=== PATIENT | male | born 1960 ===

== ENCOUNTER 2018-11-06 10:56 | Emergency (ER) | payer MEDICAID ==
[2018-11-06 10:57] VITALS: BMI 25.6
[2018-11-06 11:20] VITALS: RESP 18; O2SAT 100
[2018-11-06] MEDS ORDERED: Sodium Chloride 0.9% 1,000 ML IV ONE (11:56)
--- NOTE | 2018-11-06 12:07 | C.PDOC ---
History Of Present Illness 58 year old male presents to the emergency department with reports of intermittent, mild hematuria for the last 1.5 months. Patient states that he noticed it again yesterday and this morning. He denies flank pain, abdominal pain, dysuria, fever, and testicular pain. Patient states that he does not have a urologist. Time Seen by Provider: 11/06/18 11:43 Chief Complaint (Nursing): Male Genitourinary History Per: Patient History/Exam Limitations: no limitations Onset/Duration Of Symptoms: Intermittent Episodes, Other (1.5 months) Current Symptoms Are (Timing): Still Present Quality Of Discomfort: denies: "Pain" Associated Symptoms: denies: Fever, Back Pain (flank), Other (abdominal pain, testicular pain, dysuria) Past Medical History Reviewed: Historical Data, Nursing Documentation, Vital Signs Vital Signs: Last Vital Signs Temp 97.9 F 11/06/18 11:16 Pulse 72 11/06/18 11:16 Resp 18 11/06/18 11:16 BP 121/77 11/06/18 11:16 Pulse Ox 100 11/06/18 11:16 - Medical History PMH: No Chronic Diseases Surgical History: No Surg Hx - [facility] Procedures INSERT INDWELLING CATH (04/19/13) OTH TRANSURETHRAL PROSTATECTOMY (05/01/13) Family History: States: No Known Family Hx - Social History Hx Tobacco Use: No Hx Alcohol Use: No Hx Substance Use: Yes - Immunization History Hx Tetanus Toxoid Vaccination: No Hx Influenza Vaccination: No Hx Pneumococcal Vaccination: No Review Of Systems Constitutional: Negative for: Fever Genitourinary: Positive for: Hematuria. Negative for: Dysuria, Other (testicular pain) Musculoskeletal: Negative for: Back Pain (flank pain) Physical Exam - Physical Exam Appears: Non-toxic, No Acute Distress Skin: Normal Color, Warm, Dry Head: Atraumatic, Normacephalic Eye(s): bilateral: Normal Inspection, PERRL, EOMI Oral Mucosa: Moist Neck: Normal, Supple Chest: Symmetrical, No Tenderness Cardiovascular: Rhythm Regular, No Murmur Respiratory: Normal Breath Sounds, No Rales, No Rhonchi, No Wheezing Gastrointestinal/Abdominal: Soft, No Tenderness, No Guarding, No Rebound Extremity: Normal ROM Neurological/Psych: Oriented x3, Normal Speech, Normal Cognition ED Course And Treatment - Laboratory Results Result Diagrams: 11/06/18 12:20 11/06/18 12:20 O2 Sat by Pulse Oximetry: 100 Progress Note: Plan: CMP. CBC. NaCl IV Fluids. Urine Culture. Urinalysis Disposition Counseled Patient/Family Regarding: Studies Performed, Diagnosis, Need For Followup, Rx Given - Disposition Referrals: Suzanna Castillo MD [Staff Provider] - Disposition: HOME/ ROUTINE Disposition Time: 02:00 Condition: STABLE Additional Instructions: FOLLOW UP WITH UROLOGIST WITHIN 1 WEEK DRINK PLENTY OF WATER RETURN TO EMERGENCY ROOM IF YOUR SYMPTOMS BECOME WORSE SEGUIMIENTO CON EL UROLOGISTA EN KARINE SEMANA BEBER ABUNDANTE AGUA VUELVA A LA BRAIN DE EMERGENCIA SI PABLO SNTOMAS SE HACEN PEOR Instructions: Blood in the Urine (Hematuria), Adult (DC) Forms: MD Lingo (Irish) Print Language: RUSSIAN - Clinical Impression Clinical Impression: Hematuria - Scribe Statement The provider has reviewed the documentation as recorded by the Scribe (Alvaro Baca) Provider Attestation: All medical record entries made by the Scribe were at my direction and personally dictated by me. I have reviewed the chart and agree that the record accurately reflects my personal performance of the history, physical exam, medical decision making, and the department course for this patient. I have also personally directed, reviewed, and agree with the discharge instructions and disposition.
[2018-11-06 12:24] LABS: BASO % 0.5 % (0.0-2.0); EOS % 0.3 % (0.0-4.0); HEMOGLOBIN 16.3 g/dL (12.0-18.0); LYMPH # 1.2 K/uL (1.0-4.3); MEAN CELL VOLUME 87.4 fL (80.0-94.0); MEAN CORPUSCULAR HEMOGLOBIN 29.9 pg (27.0-31.0); MEAN CORPUSCULAR HGB CONC 34.2 g/dL (33.0-37.0); MEAN PLATELET VOLUME 9.5 fL (7.2-11.7); MONO # 0.3 K/uL (0.0-0.8); MONO % 5.9 % (0.0-10.0); NEUT # 3.2 K/uL (1.8-7.0); NEUT % 68.3 % (50.0-75.0); RBC 5.45 Mil/uL (4.40-5.90); RED CELL DISTRIBUTION WIDTH 12.5 % (11.5-14.5); WHITE BLOOD COUNT 4.7 K/uL (4.8-10.8)
[2018-11-06 12:26] LABS: URINE BACTERIA RARE (<OCC); URINE BILIRUBIN NEGATIVE (NEGATIVE); URINE BLOOD 3+ (NEGATIVE); URINE CLARITY Clear (Clear); URINE COLOR Straw (YELLOW); URINE GLUCOSE (UA) NORMAL (Normal); URINE LEUKOCYTE ESTERASE NEG Leu/uL (Negative); URINE PROTEIN NEGATIVE (NEGATIVE); URINE UROBILINOGEN NORMAL mg/dL (0.2-1.0)
[2018-11-06 12:35] LABS: ALB/GLOB RATIO 1.6 (1.0-2.1); ALBUMIN 4.7 g/dL (3.5-5.0); ALT/SGPT 35 U/L (21-72); AST/SGOT 32 U/L (17-59); BLOOD UREA NITROGEN 25 mg/dL (9-20); CALCIUM 9.5 mg/dl (8.6-10.4); GFR NON-AFRICAN AMERICAN > 60
[2018-11-06 14:47] VITALS: BP 103/66; PULSE 64; TEMP 98.8
== END 2018-11-06 14:41 | disposition home or self-care (01) ==
LOC: C.ER 10:56
DX: R31.9 Hematuria, unspecified (principal)

== ENCOUNTER 2018-11-07 11:35 | Emergency (ER) | payer MEDICAID ==
[2018-11-07 11:49] VITALS: TEMP 97.8; O2SAT 98; BMI 21.4
--- NOTE | 2018-11-07 12:16 | C.PDOC ---
History Of Present Illness 58 y/o male comes in complaining of a worsening dysuria for the past several days. Patient was seen here on 11/06/18 for similar complaint. Patient also complains of intermittent hematuria for the past 1.5 months but now has more frequency and increased clots. Patient states he is able to void fully. Denies nausea, vomiting, or fever. Patient also complains of intermittent suprapubic pain with no associations with urination. HO TURP 2012 DR DING WORSENING DYSURIA X SEV DAYS. SEEN 11/06 FOR SAME. INTERMIT HEMATURIA X 1.5 MO BUT NOW MORE FREQ, INCR CLOTS. PS ABLE TO VOID FULLY. NO NV, FEVER. INTERMIT SUPRAPUB PAIN NO ASSOC W URINATION. EXAM MILD DIST NOTNOXIC ABD +SUPRAPUB TEND NONTENDIST REMAINDER NEG Time Seen by Provider: 11/07/18 12:05 Chief Complaint (Nursing): Male Genitourinary History Per: Patient History/Exam Limitations: no limitations Onset/Duration Of Symptoms: Days Current Symptoms Are (Timing): Still Present Past Medical History Reviewed: Historical Data, Nursing Documentation, Vital Signs Vital Signs: Last Vital Signs Temp 97.8 F 11/07/18 11:43 Pulse 70 11/07/18 11:43 Resp 18 11/07/18 11:43 BP 145/81 11/07/18 11:43 Pulse Ox 98 11/07/18 11:43 - Medical History PMH: Benign Prostatic Hyperplasia - [facility] Procedures INSERT INDWELLING CATH (04/19/13) OTH TRANSURETHRAL PROSTATECTOMY (05/01/13) Family History: States: No Known Family Hx - Social History Hx Tobacco Use: No Hx Alcohol Use: No Hx Substance Use: Yes (weed) - Immunization History Hx Tetanus Toxoid Vaccination: No Hx Influenza Vaccination: No Hx Pneumococcal Vaccination: No Review Of Systems Except As Marked, All Systems Reviewed And Found Negative. Constitutional: Negative for: Fever Gastrointestinal: Positive for: Abdominal Pain (suprapubic pain). Negative for: Nausea, Vomiting Genitourinary: Positive for: Dysuria, Frequency (increased), Hematuria Physical Exam - Physical Exam Appears: Non-toxic, In Acute Distress (mild distress) Skin: Warm, Dry Head: Atraumatic, Normacephalic Eye(s): bilateral: Normal Inspection Oral Mucosa: Moist Neck: Supple Chest: Symmetrical Cardiovascular: Rhythm Regular, No Murmur Respiratory: Normal Breath Sounds, No Rales, No Rhonchi, No Wheezing Gastrointestinal/Abdominal: Tenderness (to suprapubic region), No Distention Extremity: Bilateral: Atraumatic, Normal Color And Temperature, Normal ROM Neurological/Psych: Oriented x3, Normal Speech ED Course And Treatment O2 Sat by Pulse Oximetry: 98 (RA) Pulse Ox Interpretation: Normal - CT Scan/US Abd/Pel CT Other Rad Studies (CT/US): Read By Radiologist, Radiology Report Reviewed CT/US Interpretation: FINDINGS: LOWER THORAX: No visible consolidation, pleural effusion, or pneumothorax. LIVER: Unremarkable. GALLBLADDER AND BILE DUCTS: Unremarkable. PANCREAS: Unremarkable. SPLEEN: 10 mm probable splenule. Otherwise unremarkable. ADRENALS: Unremarkable. KIDNEYS AND URETERS: The kidneys enhance symmetrically. No hydronephrosis or obstructing calculus identified. Too small to characterize 5 mm hypodensity; statistically likely cyst. VASCULATURE: No aortic aneurysm. Mild atherosclerotic calcification of the aorta. BOWEL: Stomach is nondistended. Lack of oral contrast limits evaluation for bowel pathology. Bowel loops appear within normal limits of caliber without evidence of obstruction. APPENDIX: No secondary signs of acute appendicitis. PERITONEUM: No significant free fluid. No definite free air. LYMPH NODES: No bulky adenopathy identified. BLADDER: Unremarkable. REPRODUCTIVE: Enlarged heterogeneous prostate gland measures approximately 5.2 x 5.6 x 8.6 cm (AP by transverse by cc). BONES: No acute osseous abnormality is detected. OTHER FINDINGS: None. IMPRESSION: Heterogeneous markedly enlarged prostate gland as above. Recommend correlation with PSA. Progress Note: Abd/Pel CT and UA ordered. Patient was given pyridium PO and toradol IV. Progress - Re-Evaluation Re-evaluation Note: 11/07/18 14:[address] REPORT REVIEWED. ADVISED FU - Data Reviewed Data Reviewed: Diagnostic imaging, Old records Disposition Counseled Patient/Family Regarding: Studies Performed, Diagnosis, Need For Followup - Disposition Referrals: Suzanna Castillo MD [Staff Provider] - Disposition: HOME/ ROUTINE Disposition Time: 14:48 Condition: IMPROVED Prescriptions: Ibuprofen [Motrin] 600 mg PO Q6 #30 tab Phenazopyridine HCl [Pyridium] 200 mg PO BID #6 tablet Instructions: Blood in the Urine (Hematuria), Adult (DC) Forms: [facility] (Swazi), Work Excuse - Clinical Impression Clinical Impression: Hematuria, Enlarged prostate - Scribe Statement The provider has reviewed the documentation as recorded by the Wilyibe Bridgett Gupta Provider Attestation: All medical record entries made by the Scribe were at my direction and personally dictated by me. I have reviewed the chart and agree that the record accurately reflects my personal performance of the history, physical exam, medical decision making, and the department course for this patient. I have also personally directed, reviewed, and agree with the discharge instructions and disposition.
[2018-11-07 13:15] LABS: URINE BACTERIA FEW (<OCC); URINE BILIRUBIN NEGATIVE (NEGATIVE); URINE BLOOD 3+ (NEGATIVE); URINE CLARITY Clear (Clear); URINE COLOR Red (YELLOW); URINE GLUCOSE (UA) NORMAL (Normal); URINE LEUKOCYTE ESTERASE NEG Leu/uL (Negative); URINE PROTEIN 2+ mg/dL (NEGATIVE); URINE UROBILINOGEN NORMAL mg/dL (0.2-1.0)
[2018-11-07] MEDS ORDERED: Iodixanol 320 MG/ML 100 ML BOTTLE IV ONE (13:17)
--- NOTE | 2018-11-07 14:35 | CT ---
Date of service: 11/07/2018 PROCEDURE: CT Abdomen and Pelvis with contrast HISTORY: PELVIC PAIN, HEMATURIA COMPARISON: CT abdomen and pelvis without contrast performed 07/26/13 TECHNIQUE: Contrast dose: 100 mL Visipaque IV Radiation dose: Total exam DLP = 264.88 mGy-cm. This CT exam was performed using one or more of the following dose reduction techniques: Automated exposure control, adjustment of the mA and/or kV according to patient size, and/or use of iterative reconstruction technique. FINDINGS: LOWER THORAX: No visible consolidation, pleural effusion, or pneumothorax. LIVER: Unremarkable. GALLBLADDER AND BILE DUCTS: Unremarkable. PANCREAS: Unremarkable. SPLEEN: 10 mm probable splenule. Otherwise unremarkable. ADRENALS: Unremarkable. KIDNEYS AND URETERS: The kidneys enhance symmetrically. No hydronephrosis or obstructing calculus identified. Too small to characterize 5 mm hypodensity; statistically likely cyst. VASCULATURE: No aortic aneurysm. Mild atherosclerotic calcification of the aorta. BOWEL: Stomach is nondistended. Lack of oral contrast limits evaluation for bowel pathology. Bowel loops appear within normal limits of caliber without evidence of obstruction. APPENDIX: No secondary signs of acute appendicitis. PERITONEUM: No significant free fluid. No definite free air. LYMPH NODES: No bulky adenopathy identified. BLADDER: Unremarkable. REPRODUCTIVE: Enlarged heterogeneous prostate gland measures approximately 5.2 x 5.6 x 8.6 cm (AP by transverse by cc). BONES: No acute osseous abnormality is detected. OTHER FINDINGS: None. IMPRESSION: Heterogeneous markedly enlarged prostate gland as above. Recommend correlation with PSA.
[2018-11-07 15:10] VITALS: BP 132/81; PULSE 79; RESP 16
== END 2018-11-07 15:09 | disposition home or self-care (01) ==
LOC: C.ER 11:35
DX: R31.9 Hematuria, unspecified (principal); N40.0 Benign prostatic hyperplasia without lower urinary tract symptoms
CPT/HCPCS: 74177; 81001; 87086; 96374; 99284; J1885; Q9967

== ENCOUNTER 2018-11-08 12:56 | Inpatient (IN) | payer MEDICAID ==
[2018-11-08 12:56] VITALS: BMI 25.6
[2018-11-08] MEDS ORDERED: Sodium Chloride 0.9% 1,000 ML IV ONE ×4 (14:32→20:30)
[2018-11-08 15:07] LABS: BASO % 0.4 % (0.0-2.0); EOS % 0.2 % (0.0-4.0); HEMOGLOBIN 16.1 g/dL (12.0-18.0); LYMPH # 1.5 K/uL (1.0-4.3); LYMPH % 25.6 % (20.0-40.0); MEAN CELL VOLUME 87.5 fL (80.0-94.0); MEAN CORPUSCULAR HEMOGLOBIN 29.6 pg (27.0-31.0); MEAN CORPUSCULAR HGB CONC 33.8 g/dL (33.0-37.0); MEAN PLATELET VOLUME 9.2 fL (7.2-11.7); MONO # 0.3 K/uL (0.0-0.8); MONO % 5.5 % (0.0-10.0); NEUT # 3.9 K/uL (1.8-7.0); NEUT % 68.3 % (50.0-75.0); RBC 5.46 Mil/uL (4.40-5.90); RED CELL DISTRIBUTION WIDTH 12.6 % (11.5-14.5); WHITE BLOOD COUNT 5.7 K/uL (4.8-10.8)
[2018-11-08] MEDS ORDERED: Sodium Chloride 0.9% 1,000 ML ONE (15:08)
[2018-11-08 15:12] LABS: URINE BACTERIA RARE (<OCC); URINE BILIRUBIN NEGATIVE (NEGATIVE); URINE BLOOD 1+ (NEGATIVE); URINE CLARITY Clear (Clear); URINE COLOR Amber (YELLOW); URINE GLUCOSE (UA) NORMAL (Normal); URINE LEUKOCYTE ESTERASE NEG Leu/uL (Negative); URINE PROTEIN 1+ mg/dL (NEGATIVE)
[2018-11-08 15:16] LABS: INR 1.1; PROTHROMBIN TIME 11.8 SECONDS (9.7-12.2)
[2018-11-08 15:28] LABS: ALB/GLOB RATIO 1.5 (1.0-2.1); ALBUMIN 4.6 g/dL (3.5-5.0); ALT/SGPT 35 U/L (21-72); AST/SGOT 35 U/L (17-59); BLOOD UREA NITROGEN 22 mg/dL (9-20); CALCIUM 9.6 mg/dl (8.6-10.4); GFR NON-AFRICAN AMERICAN > 60
--- NOTE | 2018-11-08 15:43 | C.PDOC ---
History Of Present Illness 58 y/o male,w/PMhx of BPH, presents to the ER upon referral of urologist, Dr. Kenton Castillo for emergent cystoscopy. Patient states that he has worsening hematuria which has been present for the past 1 month. Patient denies having fever,chills, abdominal pain, pelvic pain, dysuria, and urinary retention. Time Seen by Provider: 11/08/18 14:10 Chief Complaint (Nursing): Male Genitourinary History Per: Patient History/Exam Limitations: no limitations Onset/Duration Of Symptoms: Days, Waxing/Waning Severity: Moderate Past Medical History Reviewed: Historical Data, Nursing Documentation, Vital Signs Vital Signs: Last Vital Signs Temp 98 F 11/08/18 13:17 Pulse 72 11/08/18 13:17 Resp 20 11/08/18 13:17 BP 111/70 11/08/18 13:17 Pulse Ox 100 11/08/18 13:17 - Medical History PMH: Benign Prostatic Hyperplasia Other Surgeries: Hx of surgeries - [facility] [employer] Procedures INSERT INDWELLING CATH (04/19/13) OTH TRANSURETHRAL PROSTATECTOMY (05/01/13) Family History: States: No Known Family Hx - Social History Hx Tobacco Use: No Hx Alcohol Use: No Hx Substance Use: Yes - Immunization History Hx Tetanus Toxoid Vaccination: No Hx Influenza Vaccination: No Hx Pneumococcal Vaccination: No Review Of Systems Except As Marked, All Systems Reviewed And Found Negative. Constitutional: Negative for: Fever, Chills Gastrointestinal: Negative for: Abdominal Pain Genitourinary: Positive for: Hematuria. Negative for: Dysuria Physical Exam - Physical Exam Appears: Non-toxic, No Acute Distress Skin: Normal Color, Warm, Dry Head: Atraumatic, Normacephalic Eye(s): bilateral: Normal Inspection Nose: Normal Oral Mucosa: Moist Neck: Supple Chest: Symmetrical Cardiovascular: Rhythm Regular Respiratory: Normal Breath Sounds, No Rales, No Rhonchi Gastrointestinal/Abdominal: Soft, No Tenderness, No Guarding, No Rebound Neurological/Psych: Oriented x3, Normal Speech ED Course And Treatment - Laboratory Results Result Diagrams: 11/08/18 15:02 11/08/18 15:02 Lab Results: PT 11.8 SECONDS (9.7-12.2) 11/08/18 15:02 INR 1.1 11/08/18 15:02 APTT 39 SECONDS (21-34) H 11/08/18 15:02 Total Bilirubin 1.1 mg/dL (0.2-1.3) 11/08/18 15:02 AST 35 U/L (17-59) 11/08/18 15:02 ALT 35 U/L (21-72) 11/08/18 15:02 Alkaline Phosphatase 82 U/L (38-126) 11/08/18 15:02 Total Protein 7.8 g/dL (6.3-8.3) 11/08/18 15:02 Albumin 4.6 g/dL (3.5-5.0) 11/08/18 15:02 Globulin 3.1 gm/dL (2.2-3.9) 11/08/18 15:02 Albumin/Globulin Ratio 1.5 (1.0-2.1) 11/08/18 15:02 Urine Color Adriane (YELLOW) 11/08/18 15:02 Urine Clarity Clear (Clear) 11/08/18 15:02 Urine pH 5.0 (5.0-8.0) 11/08/18 15:02 Ur Specific Delmita 1.016 (1.003-1.030) 11/08/18 15:02 Urine Protein 1+ mg/dL (NEGATIVE) H 11/08/18 15:02 Urine Glucose (UA) Normal mg/dL (Normal) 11/08/18 15:02 Urine Ketones Negative mg/dL (NEGATIVE) 11/08/18 15:02 Urine Blood 1+ (NEGATIVE) H 11/08/18 15:02 Urine Nitrate Positive (NEGATIVE) H 11/08/18 15:02 Urine Bilirubin Negative (NEGATIVE) 11/08/18 15:02 Urine Urobilinogen 4.0 mg/dL (0.2-1.0) 11/08/18 15:02 Ur Leukocyte Esterase Neg Jarrod/uL (Negative) 11/08/18 15:02 Urine WBC (Auto) 1 /hpf (0-5) 11/08/18 15:02 Urine RBC (Auto) 4 /hpf (0-3) H 11/08/18 15:02 Urine Bacteria Rare (<OCC) 11/08/18 15:02 O2 Sat by Pulse Oximetry: 100 (RA) Pulse Ox Interpretation: Normal Progress Note: Labs and UA ordered.Patient treated with IV Fluids. Patient has been admitted to [facility]. Disposition - Disposition Disposition: HOSPITALIZED - Scribe Statement The provider has reviewed the documentation as recorded by the Wilyibe Trisha Coker Provider Attestation: All medical record entries made by the Scribe were at my direction and personally dictated by me. I have reviewed the chart and agree that the record accurately reflects my personal performance of the history, physical exam, medical decision making, and the department course for this patient. I have also personally directed, reviewed, and agree with the discharge instructions and disposition.
[2018-11-09] MEDS ORDERED: cefTRIAXone 1 gm 1 GM/100 ML BAG IVPB ONE (07:45)
[2018-11-09] MEDS ORDERED: Propofol 10 mg/ml Inj (20 ML) ONE (07:57)
[2018-11-09] MEDS ORDERED: Midazolam 2 MG/2 ML VIAL ONE (07:57)
[2018-11-09 12:59] VITALS: BP 111/70; PULSE 70; RESP 20; TEMP 97.4; O2SAT 99
--- NOTE | 2018-11-09 16:04 | HP ---
UROLOGY EMERGENCY ADMISSION HISTORY OF PRESENT ILLNESS: Mr. Domingo is a very pleasant gentleman. He went to the emergency room over the weekend and then he had to go back on Wednesday after gross hematuria. I then spoke to his daughter Wednesday, we invited him to come to the office Wednesday. He is still bleeding. He had clots of blood in the urine, so we brought him in here as an emergency admission. I do want to mention urology-lozano he said, three months ago, no problem, it has been building up, but then it continued as gross hematuria and did not get any better and he is here now today. I am admitting him as emergency and bringing him for an emergency cystoscopy. See below. I did have a chance to review his record. Back in 2012, he had a transurethral resection of the prostate done by Dr. Darby, apparently he is away at this point. The family tried calling and apparently, the ER also tried calling as well. But either way, I am on-call for the emergency room. So, we took the patient into the office and then I will bring him in as emergency admission, bring him to the OR right away. PAST MEDICAL AND SURGICAL HISTORY: As listed in the chart. No history of an HI or CVA. SOCIAL HISTORY: He comes to the office with the . Otherwise unremarkable, nonsmoker. 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 No history of trauma. REVIEW OF SYSTEMS: No weight loss, chest pain, shortness of breath, night sweats, etc. MEDICATIONS: See chart. ALLERGIES: SEE CHART. PHYSICAL EXAMINATION: GENERAL: Well-nourished male in no apparent distress. VITAL SIGNS: Within normal limits. LUNGS: Clear. HEART: Normal S1 and S2. ABDOMEN: Difficult to evaluate, but it seems a little bit distended. GENITOURINARY: Normal phallus without discharge. RECTAL: Deferred until we have done the cystoscopy. LABORATORY DATA: Urinalysis, culture, cytology pending. DIAGNOSES: Gross hematuria, voiding dysfunction, history of transurethral resection of prostate. PLAN: The patient is now being brought in to emergency. He says he is very uncomfortable and he has been bleeding now for a couple of days. The plan is for an emergency cystoscopy and then further plans depending on what we find on cystoscopy, evacuation of clots, biopsy, fulgurations depending on what we find. ADDENDUM: When I saw the patient in the office, he had had coffee at 7 a.m. I spoke to the patient to keep him n.p.o. but then he said he was feeling a little weakened, so he had an apple and some other snack now. He said it was just a light snack, but he just had it. At this point, I discussed with Anesthesia. He is not septic. What we are going to do is to bring him to the hospital. I am going to admit him, so there is no further confusion. I am going to bring him to the hospital as an emergency and then I am going to do the first case tomorrow. So, the procedure is canceled today and we will bring him to the OR tomorrow for cystoscopy and further plans will follow. I explained to the patient at length that we will keep him in the hospital for emergency evaluation. Justyn Castillo MD
--- NOTE | 2018-11-09 17:32 | OP ---
PROCEDURE DATE: 11/09/2018 PREOPERATIVE DIAGNOSES: Gross hematuria, voiding dysfunction, urinary retention, clot retention, gross hematuria with clots. POSTOPERATIVE DIAGNOSES: Gross hematuria, voiding dysfunction, urinary retention, clot retention, gross hematuria with clots. PROCEDURE: Cystoscopy. There were minimal amount of clots, but they all washed out gently just with the regular irrigation. ESTIMATED BLOOD LOSS: Less than 10 mL. FINDINGS: 1. Normal anterior urethra. No strictures. The verumontanum is somewhat occlusive. It is irregular, lateral lobes on left and right side, it is just asymmetrical. This reflects probably most likely the previous resection. The other finding that is significant is it looks like there is some significant erythema along the right side of the patient at the bladder neck going into the bladder. It does not look like a bladder tumor, it looks a prostate that has grown intravesically. I do want to mention that I can see the left ureteral orifice as well. The right one I can trace it along the floor, but it is really hiding right next to this tissue. The remainder is otherwise unremarkable. There is no bladder lesions. There is some little free floating tissue the clots that I just washed out completely of today's procedure. At the termination of the procedure of the patient, again we took multiple pictures of verumontanum. It is irregular regrowth of the prostate. This presents most likely the scarring that happened after TURP with some asymmetry, which is somewhat expected. The ureteral orifice on the left side is completely clear. On the right side, it is hiding but it could be visualized, but it is very well hidden behind the bladder neck. See below because if we were to plan for resection, we have to be very cautious and careful and be very mindful of the right ureteral orifice. There were no complications. DESCRIPTION OF PROCEDURE: After obtaining the informed consent, the patient was placed on the table. Routine monitors were placed. The patient is on antibiotic prophylaxis. We used Rocephin again. The cystoscope is 22-Kyrgyz. The anterior urethra is normal. Verumontanum is not wide open. At the verumontanum itself, the initial it is opened, but then there is little growth on the right and then little growth on the left. It is not wide-wide open. There is some scarring here and there. Of note, at the bladder neck on the patient's right side on left side of the screen, there is some tissue that is more significantly inflamed and erythematous. Likely, the source for he bleeding. But right now, it is not bleeding at all. The orifice is not well identified. I went to the left orifice, I could see a well picture and trace the course. You could see where the outline should be, but it is still not very well visualized. At this point, we did not want to start any further bleeding. The patient tolerated the procedure well without complications. ADDENDUM It is possible he would benefit from a repeat TURP. We will discuss options with the patient to see how he does, but initially we are going to just treat with antibiotics for infection. Further plans will follow. Justyn Castillo MD
== END 2018-11-09 13:01 | disposition home or self-care (01) | DRG 332 ==
LOC: C.ER 12:56 → C.SDS 15:30 → C.9S 17:59 → C.6T 21:24
PROVIDERS: ADMIT Urology; ATTEND Urology
PROC: 0TCC8ZZ Extirpation of Matter from Bladder Neck, Via Natural or Artificial Opening Endoscopic (ICD-10-PCS; principal; 2018-11-09 07:30)
DX: N32.89 Other specified disorders of bladder (principal); N40.1 Benign prostatic hyperplasia with lower urinary tract symptoms; R31.0 Gross hematuria; R33.8 Other retention of urine; Z90.79 Acquired absence of other genital organ(s)